=== PATIENT | male | born 1995 | race Two or more races ===

== ENCOUNTER 2019-05-10 20:59 | Emergency (ER) | payer OTHER ==
[~2019-05-10] VITALS: Ht 182.9 cm; Wt 93.2 kg
[2019-05-10] MEDS ORDERED: PRED5CON PO (21:22)
[2019-05-11] MEDS ORDERED: FAMOTIDINE 20 MG TAB PO ONE (00:15)
[2019-05-11] MEDS ORDERED: methylPREDNISolone INJ 125 MG/2 ML VIAL (J2930) IM ONE (00:15)
[2019-05-11] MEDS ORDERED: HYDR-3363 PO (00:36)
[2019-05-11] MEDS ORDERED: FAMO40TA3 PO (00:36)
[2019-05-11 00:52] VITALS: BP 141/69
== END 2019-05-11 00:53 | disposition home or self-care (01) ==
LOC: M ED 20:59
DX: L25.9 Unspecified contact dermatitis, unspecified cause (principal); F17.200 Nicotine dependence, unspecified, uncomplicated
CPT/HCPCS: 96372; 99283; J2930